=== PATIENT | male | born 1995 | race Caucasian/White ===

== ENCOUNTER 2019-06-01 10:33 | Day surgery (SDC) | payer OTHER ==
[~2019-06-01] VITALS: Ht 167.6 cm; Wt 74.3 kg
[2019-06-01 10:46] VITALS: BP 88/61; PULSE 78; TEMP 98.3
[2019-06-01] MEDS ORDERED: ULTRAM 50MG TAB50 MG PO (10:49)
[2019-06-01] MEDS ORDERED: BUSPAR10 MG PO (10:50)
[2019-06-01 12:30] VITALS: BP 80/45; PULSE 85
--- NOTE | 2019-06-01 12:30 | NUR ---
Patient returns to [facility] per cart and transfers from the cart to recliner with two person assist. IV fluids infusing and site is free of redness. Temp 97.8 and room air sats 99%. Encouraged to relax and rest. Call light in reach.
[2019-06-01 12:45] VITALS: BP 118/63; PULSE 50
--- NOTE | 2019-06-01 12:45 | NUR ---
Eating toast, muffin, and drinking juice. Denies pain or nausea.
[2019-06-01 13:00] VITALS: BP 124/64; PULSE 68
--- NOTE | 2019-06-01 13:00 | NUR ---
Dr. Epps here and talks with the patient. IV discontinued and is able to dress self. States that he has called for his ride home.
--- NOTE | 2019-06-01 13:11 | NUR ---
Given dismissal instructions and voices understanding of these. Assisted into wheelchair and taken to the front door and awaits ride home. Ride informed patient that he would not be able to come and get him. Returns to [facility] and patient will call [facility].
--- NOTE | 2019-06-01 13:35 | NUR ---
Patient dismissed to home driven by [employer] and taken to the front door per wheelchair and assisted into vehicle with dismissal instructions in hand.
== END 2019-06-01 13:35 | disposition home or self-care (01) ==
LOC: SDCO 10:33 → EDSEX 10:33 → SDCO 11:30
DX: K21.0 Gastro-esophageal reflux disease with esophagitis (principal); K29.30 Chronic superficial gastritis without bleeding; K92.1 Melena; R19.7 Diarrhea, unspecified; F41.9 Anxiety disorder, unspecified; Z88.2 Allergy status to sulfonamides
CPT/HCPCS: J2250; J2704; J3010; J7030

== ENCOUNTER → 2021-03-09 | Outpatient (CLI) | payer OTHER ==
[~2021-03-09] MED LIST: BUSPAR10 MG PO; ULTRAM 50MG TAB50 MG PO
== END ==
LOC: COL.RAD 08:15
DX: K76.0 Fatty (change of) liver, not elsewhere classified (principal)

== ENCOUNTER → 2021-03-19 | Outpatient (CLI) | payer OTHER | LOC: COL.RAD 08:00 | DX: R11.2 Nausea with vomiting, unspecified (principal) | CPT/HCPCS: A9541 ==

== ENCOUNTER → 2021-04-23 | Outpatient (CLI) | payer OTHER | LOC: COL.RAD 07:00 | DX: R11.2 Nausea with vomiting, unspecified (principal) | CPT/HCPCS: A9537 ==